=== PATIENT | male | born 1960 | race Caucasian/White ===

== ENCOUNTER 2018-11-26 13:58 | Outpatient (REF) | payer SELFPAY ==
[2018-11-26 22:27] LABS: BUN 12 mg/dL (7-18); Calcium 9.3 mg/dL (8.5-10.1); Calculated LDL 191; Chloride 104 mmol/L (98-107); Cholesterol 253 mg/dL (50-200); Glucose 86 mg/dL (70-100); HDL Cholesterol 31 mg/dL (40-60); Potassium 4.6 mmol/L (3.5-5.1); Sodium 144 mmol/L (136-145); Triglyceride 156 mg/dL (30-150)
[2018-11-29 10:52] LABS: PSA, Screening 1.4 ng/ml (0-4.5)
== END 2018-11-26 14:18 ==
LOC: NCHCN 13:58
PROVIDERS: Visit Provider Internal Medicine
DX: Z13.228 Encounter for screening for other metabolic disorders (principal); Z13.220 Encounter for screening for lipoid disorders; Z12.5 Encounter for screening for malignant neoplasm of prostate
CPT/HCPCS: 80048; 80061; 83721; 84153

== ENCOUNTER 2020-06-25 15:21 | Outpatient (REF) | payer OTHER, SELFPAY ==
[2020-06-25 13:46] LABS: HCT 43.5 % (40.0-50.0); HGB 14.4 g/dL (13.5-17.5); MCH 32.1 pg (27.0-33.0); MCHC 33.1 % (32.0-36.0); MCV 96.9 fL (80-95); MPV 10.6 fL (8.0-11.0); Platelet Count 215 10^3/uL (130-400); RBC 4.49 10^6/uL (4.36-5.78); RDW 13.4 % (11.8-14.1); RDW-SD 48.5 fL
[2020-06-25 14:20] LABS: ALT 38 U/L (16-63); AST 26 U/L (15-37); Albumin 3.7 g/dL (3.4-5.0); Alkaline Phosphatase 47 U/L (46-116); BUN 16 mg/dL (7-18); Bilirubin, Total 0.7 mg/dL (0.2-1.0); CREATININE 0.93 mg/dL (0.70-1.30); Calcium 8.6 mg/dL (8.5-10.1); Calculated LDL 165 mg/dL (<100); Chloride 105 mmol/L (98-107); Cholesterol 219 mg/dL (<200); Glucose 95 mg/dL (74-106); HDL Cholesterol 34 mg/dL (40-60); Magnesium 2.2 mg/dL (1.8-2.4); Potassium 4.9 mmol/L (3.5-5.1); Sodium 141 mmol/L (136-145); Total Protein 6.8 g/dL (6.4-8.2); Triglyceride 102 mg/dL (<150)
== END 2020-06-25 15:41 ==
LOC: NCHCN 15:21
PROVIDERS: Visit Provider Nurse Practitioner Family
DX: R00.0 Tachycardia, unspecified (principal); Z13.220 Encounter for screening for lipoid disorders
CPT/HCPCS: 80053; 80061; 85027; 83735; 84443

== ENCOUNTER 2022-05-26 15:13 | Outpatient (REF) | payer OTHER, SELFPAY ==
[2022-05-26 21:21] LABS: Calculated LDL 218 mg/dL (<100); Cholesterol 275 mg/dL (<200); HDL Cholesterol 40 mg/dL (40-60); Triglyceride 87 mg/dL (<150)
== END 2022-05-26 15:14 | disposition home or self-care (01) ==
LOC: NCHCN 15:13
PROVIDERS: Visit Provider Internal Medicine
DX: Z13.220 Encounter for screening for lipoid disorders (principal)
CPT/HCPCS: 80061

== ENCOUNTER 2022-11-19 10:10 | Outpatient (REF) | payer OTHER, SELFPAY ==
[2022-11-19 16:36] LABS: Calculated LDL 217 mg/dL (<100); Cholesterol 282 mg/dL (<200); HDL Cholesterol 39 mg/dL (40-60); Triglyceride 130 mg/dL (<150)
== END 2022-11-19 10:11 | disposition home or self-care (01) ==
LOC: NCHCN 10:10
PROVIDERS: Visit Provider Internal Medicine
DX: Z00.00 Encounter for general adult medical examination without abnormal findings (principal); E78.5 Hyperlipidemia, unspecified
CPT/HCPCS: 80061

== ENCOUNTER 2023-06-29 11:57 | Outpatient (REF) | payer OTHER, SELFPAY ==
[2023-06-29 16:06] LABS: ALT 43 U/L (16-63); AST 29 U/L (15-37); Albumin 3.8 g/dL (3.4-5.0); Alkaline Phosphatase 80 U/L (46-116); Anion Gap 7.5 mmol/L (3-11); BUN 14 mg/dL (7-18); Bilirubin, Total 0.8 mg/dL (0.2-1.0); CO2 30.5 mmol/L (21.0-32.0); CREATININE 1.2 mg/dL (0.70-1.30); Calcium 9.2 mg/dL (8.5-10.1); Calculated LDL 95 mg/dL (<100); Chloride 102 mmol/L (98-107); Cholesterol 150 mg/dL (<200); Estimated GFR 67.53 (mL/min/1.73m2); Glucose 112 mg/dL (74-106); HDL Cholesterol 41 mg/dL (40-60); Potassium 4.3 mmol/L (3.5-5.1); Sodium 140 mmol/L (136-145); Total Protein 7.8 g/dL (6.4-8.2); Triglyceride 70 mg/dL (<150)
== END 2023-06-29 11:58 | disposition home or self-care (01) ==
LOC: NCHCN 11:57
PROVIDERS: Visit Provider Internal Medicine
DX: E78.5 Hyperlipidemia, unspecified (principal)
CPT/HCPCS: 80053; 80061

== ENCOUNTER 2023-11-23 13:20 | Outpatient (REF) | payer MEDICARE, SELFPAY ==
[2023-11-23 16:09] LABS: ALT 61 U/L (16-63); AST 30 U/L (15-37); Albumin 3.9 g/dL (3.4-5.0); Alkaline Phosphatase 75 U/L (46-116); Anion Gap 7.7 mmol/L (3-11); BUN 12 mg/dL (7-18); Bilirubin, Total 0.6 mg/dL (0.2-1.0); CO2 29.3 mmol/L (21.0-32.0); Calcium 9.1 mg/dL (8.5-10.1); Calculated LDL 108 mg/dL (<100); Chloride 104 mmol/L (98-107); Cholesterol 162 mg/dL (<200); Estimated GFR 83.52 (mL/min/1.73m2); Glucose 104 mg/dL (74-106); HDL Cholesterol 42 mg/dL (40-60); Potassium 4.3 mmol/L (3.5-5.1); Sodium 141 mmol/L (136-145); Total Protein 7.1 g/dL (6.4-8.2); Triglyceride 63 mg/dL (<150)
[2023-11-23 23:16] LABS: PSA, Screening 1.1 ng/mL (<=4.5)
== END 2023-11-23 13:21 | disposition home or self-care (01) ==
LOC: NCHCN 13:20
PROVIDERS: PCP Internal Medicine; Visit Provider Internal Medicine
DX: E78.5 Hyperlipidemia, unspecified (principal); Z12.5 Encounter for screening for malignant neoplasm of prostate
CPT/HCPCS: 80053; 80061; 84153

== ENCOUNTER 2024-11-23 08:56 | Outpatient (REF) | payer MEDICARE, SELFPAY ==
[2024-11-23 15:27] LABS: HCT 46.5 % (40.0-50.0); HGB 15.9 g/dL (13.5-17.5); MCH 32.5 pg (27.0-33.0); MCHC 34.2 % (32.0-36.0); MCV 95 fL (80-95); MPV 10.9 fL (8.0-11.0); Platelet Count 225 10^3/uL (130-400); RBC 4.89 10^6/uL (4.36-5.78); RDW 13.4 % (11.8-14.1); RDW-SD 47.5 fL; WBC 5.12 10^3/uL (4.4-10.8)
[2024-11-23 15:34] LABS: ALT 39 U/L (16-63); AST 27 U/L (15-37); Albumin 3.8 g/dL (3.4-5.0); Alkaline Phosphatase 70 U/L (46-116); Anion Gap 7.3 mmol/L (3-11); BUN 12 mg/dL (7-18); Bilirubin, Total 1.5 mg/dL (0.2-1.0); CO2 27.7 mmol/L (21.0-32.0); CREATININE 1.1 mg/dL (0.70-1.30); Calculated LDL 217 mg/dL (<100); Chloride 105 mmol/L (98-107); Cholesterol 279 mg/dL (<200); Estimated GFR 74.04 (mL/min/1.73m2); Glucose 110 mg/dL (74-106); HDL Cholesterol 37 mg/dL (>or=40); Potassium 4.1 mmol/L (3.5-5.1); Sodium 140 mmol/L (136-145); Total Protein 7.4 g/dL (6.4-8.2); Triglyceride 128 mg/dL (<150)
== END 2024-11-23 08:57 | disposition home or self-care (01) ==
LOC: NCHCN 08:56
PROVIDERS: PCP Internal Medicine; Visit Provider Internal Medicine
DX: E78.5 Hyperlipidemia, unspecified (principal)
CPT/HCPCS: 80053; 80061; 85027

== ENCOUNTER 2025-01-30 15:08 | Outpatient (REF) | payer MEDICARE, BC, SELFPAY ==
[2025-01-30 15:07] LABS: ALT 54 U/L (16-63); AST 30 U/L (15-37); Albumin 3.9 g/dL (3.4-5.0); Alkaline Phosphatase 65 U/L (46-116); Bilirubin, Direct 0.2 mg/dL (0.0-0.2); Bilirubin, Total 1.0 mg/dL (0.2-1.0); Calculated LDL 124 mg/dL (<100); Cholesterol 184 mg/dL (<200); HDL Cholesterol 38 mg/dL (>or=40); Total Protein 7.1 g/dL (6.4-8.2); Triglyceride 110 mg/dL (<150)
== END 2025-01-30 15:09 | disposition home or self-care (01) ==
LOC: NCHCN 15:08
PROVIDERS: PCP Internal Medicine; Visit Provider Internal Medicine
DX: E78.5 Hyperlipidemia, unspecified (principal); R17 Unspecified jaundice
CPT/HCPCS: 80061; 80076